=== PATIENT | male | born 1950 | race Caucasian/White ===

== ENCOUNTER 2024-05-22 17:40 | Emergency (ER) | payer MEDICARE, SELFPAY ==
[2024-05-22] VITALS (7 sets, daily range): BP systolic 152–192; BP diastolic 70–100; BMI 31.9
[2024-05-22 18:04] LABS: % Basophils 0.7 % (0-2); % Eosinophils 1.6 % (0-6); % Immature Granulocytes 0.4 % (0-0.5); % Monocytes 6.9 % (1.7-9.3); % Neutrophils 66.4 % (42.2-75.2); Absolute Basophils 0.1 10^3/uL (0-0.2); Absolute Eosinophils 0.1 10^3/uL (0-0.7); Absolute Monocytes 0.6 10^3/uL (0.1-0.6); Absolute Neutrophils 5.4 10^3/uL (1.4-6.5); Hematocrit 42.1 % (39.0-52.0); Hemoglobin 14.7 g/dL (13.0-18.0); Mean Corp Hgb Conc. 34.9 g/dL (33.0-37.0); Mean Corpuscular Hgb 29.6 pg (27.0-31.0); Mean Corpuscular Volume 84.7 fL (80.0-94.0); Mean Platelet Volume 11.1 fL (7.4-10.4); Nucleated Red Blood Cells % 0 % (-); Platelet Count 218 10^3/uL (130-400); Red Blood Cell Count 4.97 10^6/uL (4.70-6.10); Red Cell Dist. Width 13.2 % (11.5-14.5); White Blood Cell Count 8.1 10^3/uL (4.8-10.8)
[2024-05-22 18:24] LABS: ALT (SGPT) 20 U/L (0-50); AST (SGOT) 27 U/L (17-59); Albumin 4.4 g/dl (3.5-5.0); Alkaline Phosphatase 77 U/L (38-126); Blood Urea Nitrogen 17 mg/dl (9-20); Calcium 9.3 mg/dl (8.4-10.2); Carbon Dioxide 21 mmol/L (22-30); Chloride 103 mmol/L (98-107); Estimated Creatinine Clearance 65 ml/min; Glucose 259 mg/dl (70-99); Sodium 140 mmol/L (135-145); Total Bilirubin 0.5 mg/dl (0.2-1.3); Total Protein 6.9 g/dl (6.3-8.2); eGFR > 60.00
[2024-05-22 18:27] LABS: Troponin I < 0.012 ng/ml
--- NOTE | 2024-05-22 18:28 | ED.GENMED ---
History of Present Illness
General
Chief Complaint: Chest Pain
Source: patient
Exam Limitations: none
Time Seen by Provider: 05/22/24 18:10
Nursing documentation reviewed up to this point in time: agreed with
History of Present Illness
History of Present Illness:
73-year-old male presents to the ER for evaluation. Patient is from a [facility] facility in [place] and was at a local play in [place]. it is document the patient has a history of dementia hypertension diabetes renal stone. Medics report that
staff stated that pt was complaining of chest pain that radiated to his left arm.
On my exam patient is awake alert he seems pleasantly confused ([place]ells [place]and tells me that he has a history of kidney stones and was having right flank pain. He does not mention any chest pain complaint to me but did
to ER nurse.
Review of Systems
Review of Systems
Unable to obtain full review of systems at this time due to: dementia
: Reports flank pain (left )
Musculoskeletal: Reports back pain (right back 'flank pain ' )
Skin: Reports no symptoms
Neurological: Reports no symptoms
Psychiatric: Reports no symptoms
Phy Exam
General Physical Exam
General Presentation: no apparent distress
General age: appears stated age
General Skin: warm and dry
General Habitus: normal
General Mental: alert
General Hydration: appears well hydrated
Cardiovascular Exam
Cardiovascular Exam: regular rate/rhythm, no murmur and normal peripheral pulses
Pulmonary Exam
Pulmonary Exam: lungs clear and no respiratory distress
Gastrointestinal Exam
Gastrointestinal Exam: non tender and soft
Neurological Exam
Neurological Exam: alert
Musculoskeletal Exam
Musculoskeletal Exam: full ROM
Skin Exam
Skin Exam: normal color and warm/dry
Psychiatric Exam
Psychiatric Exam: normal mood/affect
Scores
Heart Score for Chest Pain Patients
STEMI patient?: Not applicable
Course
Orders/Labs/Results
Orders:
Orders
05/22/24 17:46
Electrocardiogram (*1) Urgent
Reason for Study: Chest Pain
Cardiac Monitoring- Treatment ONCE
EKG- Treatment ONCE
05/22/24 17:56
Complete Blood Count/With Diff Urgent
Comprehensive Metabolic Panel Urgent
Troponin I Urgent
05/22/24 18:37
CT Abd/pel Without Iv Or Oral Urgent
Comment:
Reason For Exam: right flank pain
Chest [CR Chest - 2 Views ] Urgent
Comment:
Reason For Exam: cp
05/22/24 21:14
Troponin I Urgent
05/22/24 21:25
Electrocardiogram (*1) Stat
Reason for Study: Other
Other Reason for Exam: chest pain
EKG- Treatment ONCE
Abnormal Lab Results
05/22/24
17:56
MPV 11.1 H fL
(7.4-10.4)
Carbon Dioxide 21 L mmol/L
(22-30)
Glucose 259 H mg/dl
(70-99)
05/22/24 17:56
05/22/24 17:56
Vital Signs
Initial and Last Documented VS:
Initial Vital Signs
Temp Pulse Resp BP Pulse Ox
99.4 F 74 18 184/91 97
05/22/24 17:42 05/22/24 17:42 05/22/24 17:42 05/22/24 17:42 05/22/24 17:42
Last Documented Vital Signs
Temp Pulse Resp BP Pulse Ox
99.4 F 56 19 177/83 94
05/22/24 17:42 05/22/24 21:08 05/22/24 21:08 05/22/24 21:08 05/22/24 21:08
MDM/Problems Addressed
Differential Diagnosis Includes:
not limited to : [place] , renal colic
MDM/Problems Addressed:
Patient is a 73-year-old male from facility in [place] with history of dementia brought to the ER for complaints of chest pain. Patient on my exam complains of flank pain he does have a documented history of kidney stones and remains
complaining of right flank pain however with dementia will check cardiac troponins/do cardiac workup however will also workup for renal stone. Because patient is unreliable will keep for second troponin if first troponin is negative. He is no
acute distress here in the ED.
2124: Patient continues in no acute distress. No complaints presently. CAT scan shows 2 small nephroliths in the right kidney no ureteral calculus. Lobulated mass arising from the right kidney will include on discharge instructions outpatient
follow-up for this.
2239: Patient continues in no acute distress second cardiac troponin negative. no cardiac history
2308: Patient resting has no complaints plan to d/c back to [facility]
Chronic conditions affecting care:
dementia
*Radiology
Radiology exam reviewed: radiology read reviewed
*Pulse Oximetry
Patient hypoxic: no
*EKG
Interpreted by ED Provider?: Yes
Interpretation: normal
Heart Rate: 70
Rate: normal
Rhythm: sinus
Ischemia: no ischemia
*Critical Care Note
Total Time (30-74mins, 75-104mins- exclusive of procedures): Not Applicable
ED Attending Note
-
Portions of this chart may have been created with voice recognition software.� Occasional wrong word or��sound alike� substitutions may have occurred due to the inherent limitations of voice recognition software.
Discharge Plan
Departure
Patient Disposition: Retirement/SNF
Date of Disposition: 05/22/24
Time of Disposition: 23:10
Patient with high blood pressure during this ER visit?: Yes
Condition: Fair
Covid-19: Not Applicable
Discharge Problem:
Acute flank pain
Instructions: Flank Pain (DC)
Prescriptions:
No Action
acetaminophen 325 mg Tablet
650 mg PO Q4H PRN (Reason: pain)
trazodone 50 mg Tablet
12.5 mg PO DAILY
atenolol [Tenormin] 100 mg Tablet
100 mg PO BID
citalopram 10 mg Tablet
10 mg PO DAILY
lisinopril 30 mg Tablet
30 mg PO DAILY
fluticasone propionate 50 mcg/actuation [place],Suspension
1 spray INTRANASAL DAILY
Centrum Silver Ultra Men's [id number] mcg Tablet
1 tab PO DAILY
Jardiance 25 mg Tablet
25 mg PO DAILY
melatonin 3 mg Capsule
3 mg PO HS PRN (Reason: insomnia)
latanoprost (PF) 0.005 % Drops
1 drp OPHTHALMIC (EYE) DAILY
loratadine 10 mg Tablet,Chewable
10 mg PO DAILY
Referrals:
Santa Tobar MD [Family Provider] -
Activity Restrictions/Additional Instructions:
Patient apparently had complaints of chest pain prior to arrival however on arrival had complaints of flank pain. He had cardiac evaluation as well as CAT scan to rule out kidney stone. CAT scan was negative for kidney stone cardiac blood work no
acute EKG abnormalities.
Patient must be valuated by family doctor in the next several days for reevaluation. Follow-up with family doctor for additional findings on CAT scan of the abdomen including lobulated cystic mass arising from the posterior lateral upper to mid
right kidney
Interventions
Interventions:
*Risk Screen - Suicide Last Done: 05/22/24 17:49
*General Assessment Last Done: 05/22/24 18:40
*Neglect/Abuse Screening Last Done: 05/22/24 17:49
ED- Fall Risk Assessment Last Done: 05/22/24 17:49
*ED COVID-19 Vaccine History Last Done: 05/22/24 17:48
ED- Cardiac Assessment Last Done: 05/22/24 17:49
Discharge Date and Time
Print Language: ROMANIAN
[2024-05-22 21:45] LABS: Troponin I < 0.012 ng/ml
[2024-05-23] VITALS: BP 177/83
== END 2024-05-23 00:35 ==
LOC: EMR 17:40
PROVIDERS: Nurse Practitioner; Student in an Organized Health Care Education/Training Program; EMERGENCY PHYSICIAN Emergency Medicine; FAMILY PHYSICIAN Internal Medicine
DX: R10.9 Unspecified abdominal pain (principal); F03.90 Unspecified dementia, unspecified severity, without behavioral disturbance, psychotic disturbance, mood disturbance, and anxiety; E11.9 Type 2 diabetes mellitus without complications; I10 Essential (primary) hypertension; Z87.442 Personal history of urinary calculi
CPT/HCPCS: 99284; 71046; 74176; 80053; 84484; 85025; 93005